=== PATIENT | female | born 1960 | race Caucasian/White ===

== ENCOUNTER → 2017-05-24 | Outpatient (CLI) | payer OTHER ==
[~2017-05-24] MED LIST: ATRIPLA TABLET1 EACH PO; CENTRUM SILVER1 EAC3 PO; CYANOCOBALAM1000 MCG PO; MACROBID100 MG PO; VITAMIN D32000 UNI1 PO
== END | disposition home or self-care (01) ==
LOC: CDC 15:07
DX: Z01.810 Encounter for preprocedural cardiovascular examination (principal); M79.641 Pain in right hand; M19.041 Primary osteoarthritis, right hand; M67.441 Ganglion, right hand
CPT/HCPCS: 93000

== ENCOUNTER 2017-05-25 05:44 | Day surgery (SDC) | payer OTHER ==
[~2017-05-25] VITALS: Ht 167.6 cm; Wt 59.0 kg
[~2017-05-25 05:44] MED LIST changes: -CENTRUM SILVER1 EAC3 PO
[2017-05-25] MEDS ORDERED: CENTRUM SILVER1 EAC3 PO (06:35)
[2017-05-25 06:39] VITALS: BP 126/78
[2017-05-25 10:15] VITALS: BP 125/63
[2017-05-25 11:40] VITALS: BP 119/81
== END 2017-05-25 11:44 | disposition home or self-care (01) ==
LOC: SDC
DX: M19.041 Primary osteoarthritis, right hand (principal); M67.441 Ganglion, right hand; B20 Human immunodeficiency virus [HIV] disease; K75.9 Inflammatory liver disease, unspecified; Z86.19 Personal history of other infectious and parasitic diseases; Z82.49 Family history of ischemic heart disease and other diseases of the circulatory system; Z83.3 Family history of diabetes mellitus
CPT/HCPCS: 73140; 76000; C1713; C1769; J0690; J1170; J2250; J2405; J3010; S0020